=== PATIENT | male | born 1930 | race Caucasian/White ===

== ENCOUNTER → 2016-06-24 | Day surgery (SDC) | payer MEDICARE, BC ==
[~2016-06-24] MED LIST: ALEN70TA3 PO; ASPI-482 PO; CETI10TA22 PO; CHOL500015 PO; CRESTOR5 MG PO; ERGO500012 PO; FOLI1TAB16 PO; HYDR-971 PO; HYDR500C3 PO; IV RINGERS,LACTATED 1000ML 1,000 ML IV SCH; LIDOCAINE 2% PF Vial for OR 5 ML VIAL. ONE; METR60GE TP; MULT-658 PO; OMEP20CA5 PO; OXYC-323 PO; POTA10TA4 PO; PROPOFOL 40 ML IV ONE; TAMS0.4C2 PO; WHEA1POW8 PO; [UNRECOGNIZED DRUG - CODE] MC; [UNRECOGNIZED DRUG - OTHER]; [UNRECOGNIZED DRUG - OTHER]; juice plus
[2016-06-24 10:40] VITALS: BP 134/69
--- NOTE | 2016-06-24 11:23 | PREOP HP ---
DATE OF SERVICE: 06/24/2016 DATE OF PROCEDURE: 06/24/2016 REQUESTING PHYSICIAN: Emeka Mendez DO PRIMARY CARE PHYSICIAN: Emeka Mendez DO REASON FOR PROCEDURE: History of polyps. HISTORY OF PRESENT ILLNESS: This is an 86-year-old gentleman with a past medical history of multiple polyps. He presents today for colonoscopy. He did undergo right hemicolectomy on 10/03/2013. He has had no current GI complaints. PAST MEDICAL HISTORY: 1. Multiple polyps. 2. Reflux. 3. Prostate cancer, status post radiation. 4. Arthritis. 5. Kidney stones. 6. Palpitation. FAMILY MEDICAL HISTORY: Significant for heart disease, stomach cancer and SC. SOCIAL HISTORY: He is a former smoker. He quit in 1963. He denies alcohol or IV drug abuse. PAST SURGICAL HISTORY: 1. Hiatal hernia surgery. 2. Back surgery. 3. Vasectomy. 4. Cardiac ablation. 5. Prostatectomy. 6. Hernia repair. MEDICATIONS: 1. Aspirin. 2. Vitamin D. 3. Hydroxyurea. 4. Omeprazole. 5. Potassium. 6. Crestor. 7. Tamsulosin. 8. Benefiber. ALLERGIES: No known drug allergies. REVIEW OF SYSTEMS: A 13-point review of systems was done. It is positive as per HPI and otherwise negative. PHYSICAL EXAMINATION: GENERAL: He is a well-developed, well-nourished male in no apparent distress. HEENT: His oropharynx is clear. CARDIOVASCULAR: S1 and S2. LUNGS: Clear. ABDOMEN: Soft, nontender, and nondistended. ASSESSMENT AND PLAN: History of colon polyps. The risks and benefits of the procedure including bleeding, perforation and underlying were explained and he has agreed to proceed. Thank you for allowing me to participate in the care of this patient. SABI MILLER MD DR: TEE/jamil JOB#: [id number] / [id number]
--- NOTE | 2016-06-25 13:46 | PATHOLOGY ---
PATHOLOGY REPORT * * * * * * * * FINAL DIAGNOSIS: A. Colon biopsy, sigmoid polyp: - Tubular adenoma. B. Colon biopsy, transverse colon polyp: - Consistent with prominent fold. C. Colon biopsies, anastomosis polyp: - Consistent with prominent fold. D. Colon biopsy, sigmoid colon polyps; - Hyperplastic polyps. COMMENT: There is no high grade dysplasia or evidence of malignancy. (JPM:all; d/t: 06/25/2016) REPORT ELECTRONICALLY SIGNED BY: Raulito Lugo M.D. DATE/TIME: 06/25/2016 13:45 * * * * * * * * GROSS PATHOLOGY: A. Received in formalin labeled "Darien Jonesard and sigmoid polyp bx," is a segment of conley soft tissue measuring 0.3 cm in maximum dimension. The specimen is submitted entirely in cassette A1. B. Received in formalin labeled "Darien Jonesard and transverse colon polyp bx," is a segment of conley soft tissue measuring 0.3 cm in maximum dimension. The specimen is submitted entirely in cassette B1. C. Received in formalin labeled "Robert Karen and bx polyp anastomosis," are 3 segments of conley soft tissue measuring 1.2 x 0.3 x 0.2 cm in aggregate dimensions and ranging from 0.2 to 0.7 cm in maximum dimension. The specimen is submitted entirely in cassette C1. D. Received in formalin labeled "Karen Jones and bx polyps (2) sigmoid," are 3 segments of conley soft tissue measuring 0.9 x 0.2 x 0.2 cm in aggregate dimensions and ranging from 0.2 to 0.4 cm in maximum dimension. The specimen is submitted entirely in cassette D1. (TTL; 06/24/2016) INITIAL CPT CODE(S): A; 00024 B; 65157 C; 46970 D; 03618 Professional services performed by [facility] at [address] [address] Technical services performed by [facility] at [address] [place] [address], [address], [place] [address]. SPECIMEN(S) RECEIVED: A.Sigmoid polyp biopsy B.Transverse colon polyp biopsy C.Biopsy polyp anastomosis D.Biopsy polyps (2) sigmoid CLINICAL HISTORY: History of colon polyps PATIENT: DARIEN JONESPOPEYE Sherman /AGE: 1205/15/1930 (Age: 86) PATIENT #: [id number] ALT CASE #: SPECIMEN COLLECTION DATE: 06/24/2016 SPECIMEN RECEIVED DATE: 06/24/2016 [facility] - [address] [place] [address] - PHONE: [phone] * * * END OF REPORT * * *
== END | disposition home or self-care (01) ==
LOC: ENDOS 08:23
PROVIDERS: ATTEND Internal Medicine Gastroenterology
DX: Z12.11 Encounter for screening for malignant neoplasm of colon (principal); D12.5 Benign neoplasm of sigmoid colon; K63.5 Polyp of colon; K64.0 First degree hemorrhoids; Z98.0 Intestinal bypass and anastomosis status; I72.9 Aneurysm of unspecified site; I48.91 Unspecified atrial fibrillation; K21.9 Gastro-esophageal reflux disease without esophagitis; Z98.52 Vasectomy status; N30.90 Cystitis, unspecified without hematuria; M19.90 Unspecified osteoarthritis, unspecified site; Z87.891 Personal history of nicotine dependence; D64.9 Anemia, unspecified; Z51.0 Encounter for antineoplastic radiation therapy
CPT/HCPCS: 45380; J2704; 88305

== ENCOUNTER 2016-07-06 08:53 | Observation (INO) | payer MEDICARE ==
[~2016-07-06] VITALS: Ht 165.1 cm; Wt 108.4 kg
[2016-07-06] VITALS (9 sets, daily range): BP systolic 128–146; BP diastolic 64–73
[~2016-07-06 08:53] MED LIST changes: +FENTANYL PF 100 MCG/2 ML VIAL. IV PRN; +HYDROMORPHONE 2 MG/ML VIAL. IV PRN; +LIDOCAINE 1% 1 ML SYRINGE. ID PRN; -LIDOCAINE 2% PF Vial for OR 5 ML VIAL. ONE; +MORPHINE SULFATE 2 MG/ML DISP.SYRIN. IV PRN; +ONDANSETRON PF 4 MG/2 ML VIAL. IV PRN; +PROCHLORPERAZINE 10 MG/2 ML VIAL. IV PRN; -PROPOFOL 40 ML IV ONE
[2016-07-06] MEDS ORDERED: CEFTRIAXONE 1GM IVPB FOR OMNI 50 ML IV ONE (09:26)
[2016-07-06 09:37] LABS: BILIRUBIN,URINE LARGE (NEG); GLUCOSE,URINE 100 mg/dL (NEG); NITRITE,URINE POSITIVE (NEG); PROTEIN,URINE >=300 mg/dL (NEG-TRACE)
[2016-07-06] MEDS ORDERED: FENTANYL PF 100 MCG/2 ML VIAL. ONE (09:43)
[2016-07-06 09:47] LABS: RBC,URINE TNTC /HPF (0-2)
[2016-07-06 09:48] LABS: BACTERIA,URINE 0 /HPF (0-FEW)
[2016-07-06] MEDS ORDERED: LIDOCAINE 2% 100 MG/5 ML DISP.SYRIN. ONE (09:53)
[2016-07-06] MEDS ORDERED: PROPOFOL 20 ML IV ONE (09:53)
[2016-07-06] MEDS ORDERED: SEVOFLURANE 31 TO 60 MINUTES. IH ONE (09:53)
[2016-07-06] MEDS ORDERED: ONDANSETRON PF 4 MG/2 ML VIAL. ONE (09:53)
[2016-07-06] MEDS ORDERED: DEXAMETHASONE SOD PHOS 20 MG/5 ML VIAL. ONE (09:53)
[2016-07-06] MEDS ORDERED: SEVOFLURANE 61 TO 120 MINUTES. IH ONE (10:42)
[2016-07-06] MEDS ORDERED: ACETAMINOPHEN 325 MG TABLET. PO PRN (11:00)
[2016-07-06] MEDS ORDERED: 0.9 % SODIUM CHLORIDE 10 ML DISP.SYRIN. IV PRN (11:00)
[2016-07-06] MEDS ORDERED: MAGNESIUM HYDROXIDE 2,400 MG/30 ML ORAL.SUSP. PO PRN (11:00)
[2016-07-06] MEDS ORDERED: DIPHENHYDRAMINE HCL 25 MG CAPSULE PO PRN (11:00)
[2016-07-06] MEDS ORDERED: MAG HYDROX/AL HYDROX/SIMETH 30 ML ORAL.SUSP PO PRN (11:00)
[2016-07-06] MEDS ORDERED: NALOXONE 0.4 MG/ML VIAL. IV PRN ×2 (11:00)
[2016-07-06] MEDS ORDERED: MORPHINE SULFATE 2 MG/ML DISP.SYRIN. IV PRN (11:00)
[2016-07-06] MEDS ORDERED: ONDANSETRON PF 4 MG/2 ML VIAL. IV PRN (11:00)
[2016-07-06] MEDS: FENTANYL PF 100 MCG/2 ML VIAL. IV PRN ×2 (11:14→11:32)
[2016-07-06] MEDS ORDERED: CALCIUM POLYCARBOPHIL 625 MG TABLET PO PRN (11:16)
[2016-07-06] MEDS: HYDROCODONE/APAP 5/325MG TABLET. PO PRN ×2 (12:13→23:37)
[2016-07-06] MEDS: POTASSIUM CL 20MEQ-0.45% NACL 1,000 ML IV SCH (13:43)
--- NOTE | 2016-07-06 14:23 | OP ---
DATE OF SURGERY: 07/06/2016 PREOPERATIVE DIAGNOSES: Gross hematuria, urinary clots, radiation cystitis. POSTOPERATIVE DIAGNOSES: Gross hematuria, urinary clots, radiation cystitis. PROCEDURE: Cystoscopy, evacuation of bladder clots, fulguration of bladder mucosa, fulguration of prostate fossa. SURGEON: Trina Herrera DO ANESTHESIA: General. DRAINS: 22-Polish 3-way Bautista catheter to continuous bladder irrigation. 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 He was treated for prostate cancer years ago with radiation. He has had intermittent problems with radiation cystitis and gross hematuria. He completed hyperbaric oxygen therapy approximately a month ago and had a pretty good result, but during the last week, he has had gross hematuria, clots and difficulty voiding. It was felt that he should be brought to the hospital to undergo cystoscopy, evacuation of clots, fulguration of bleeding sites. This was explained to the patient. He appeared to understand and was agreeable. DESCRIPTION OF PROCEDURE: The patient was preloaded with a gram of Rocephin. He was taken to the operating room and placed on the operating room table, given a general anesthetic and then placed in a dorsolithotomy position using Tyshawn stirrups since we do not have a cystoscopy table. Rigid cystoscopy was performed. The patient was found to have a deep bulb urethral stricture and therefore, I had to remove the scope and dilate this stricture. Following that, rigid cystoscopy was performed. The prostate area was visualized. The sphincter appeared to be intact. He had some hemorrhagic changes at the bladder neck. Scope was advanced into the bladder. There were some clots in the bladder. These had to be evacuated with Ellik evacuator. I then began to carefully inspect the bladder mucosa with the 30 and 70-degree lens. He appeared to have some bleeding sites on the right lateral bladder wall. I was able to advance a 24-Polish resectoscope sheath with a [employer] obturator into the bladder and then used the [employer] resectoscope fitted with a rollerball electrode. I was able to reach some of these bleeding sites, but the patient's bladder neck is fixed and I could not get an angle to where I could get to all of the bleeding sites with the resectoscope. Therefore, the scope was removed. I then inserted a 21-Polish rigid cystoscope into the bladder and used a Bugbee electrode and once again the limiting factor was the patient's frozen bladder neck, it was hard to get the scope at an angle to cauterize all bleeding vessels on the right lateral wall. I cauterized as much as I could. Following that, I retracted the scope into the bladder neck and there was some tissue there that was hemorrhagic and bleeding in nature and this was cauterized as well. Inspection of the bladder revealed that I had cauterized all that I could reach and there was minimal bleeding left. Therefore, the instruments were removed. A well-lubricated 22-Polish 3-way Bautista catheter was inserted into the urethra and into the bladder and the balloon was filled with 15 mL of fluid and connected to continuous bladder irrigation. The patient tolerated the procedure well and was sent to recovery room in satisfactory condition. Plans will be to place the patient in observation bed with his 3-way Bautista catheter to continuous bladder irrigation. We will see how his hematuria does overnight. TRINA HERRERA DO DR: CLARA/jamil JOB#: [id number] / [id number]
[2016-07-06] MEDS ORDERED: HYDROXYUREA 500 MG CAPSULE PO SCH (18:00)
[2016-07-06] MEDS ORDERED: ATORVASTATIN CALCIUM 20 MG TABLET PO SCH (21:00)
[2016-07-06] MEDS ORDERED: TAMSULOSIN 0.4 MG CAP.ER.24H. PO SCH (21:00)
[2016-07-06] MEDS: DOCUSATE SODIUM 100 MG CAPSULE PO SCH (21:21)
[2016-07-07] MEDS: POTASSIUM CL 20MEQ-0.45% NACL 1,000 ML IV SCH ×2 (02:10→11:52)
[2016-07-07 03:00] VITALS: BP 120/60
[2016-07-07] MEDS ORDERED: LEVOFLOXACIN 500 MG TABLET PO SCH (06:00)
[2016-07-07 07:00] VITALS: BP 122/52
[2016-07-07] MEDS ORDERED: PANTOPRAZOLE 40 MG TABLET. PO SCH (07:30)
[2016-07-07] MEDS: DOCUSATE SODIUM 100 MG CAPSULE PO SCH (08:59)
[2016-07-07] MEDS ORDERED: POTASSIUM CITRATE 10 MEQ TABLET.ER PO SCH (09:00)
[2016-07-07 11:00] VITALS: BP 127/57
--- NOTE | 2016-07-07 13:05 | DISCH ---
DISCHARGE INSTRUCTIONS Condition on Discharge Condition on Discharge: Stable Activity After Discharge Activity Instructions for Disc: Avoid exertion Lifting Instructions after Dis: No heavy lifting Diet after Discharge Diet after Discharge: Regular Contacting the DRLars after DC Call your doctor for: Concerns you may have Follow-Up Follow up with: Dr Herrera in 4 weeks TRINA HERRERA DO Jul 07, 2016 13:05
--- NOTE | 2016-07-07 13:07 | PDOC ---
Provider Note Provider Note Urology: Urine color improved schwartz catheter removed Plan: Home Rx TRINA Alonso DO Jul 07, 2016 13:07
--- NOTE | 2016-07-07 20:09 | DS ---
DATE OF DISCHARGE: 07/07/2016 FINAL DIAGNOSES: Hematuria, radiation cystitis. OPERATIONS AND PROCEDURES: Cystoscopy, evacuation of bladder clots, fulguration of bladder. This is a summary of the patient's hospital course. A well-documented history and physical can be found within the body of the chart. Briefly, this is an 86-year-old male with a history of radiation cystitis. Recently, he developed gross hematuria and was passing clots. He is experiencing difficulty voiding. Therefore, it is felt that he should be brought to the hospital and undergo cystoscopy and extraction of blood clots from the bladder and ____ bleeding vessels. The patient was brought to the hospital on 07/06/2016. He was taken to surgery and under general anesthesia, cystoscopy is performed. The clots were evacuated from the bladder. Then, the bleeding vessels on the bladder mucosa were cauterized. I had difficulty reaching some of the bleeding areas on the right lateral wall due to the fixated bladder neck which would not allow me to get the scope over to these areas. However, most of the bleeding was stopped and well controlled at the conclusion of the procedure. Therefore, a 22-Greek 3-way Bautista catheter was inserted into the urethra and into the bladder. A 15 mL balloon was filled and he was placed on continuous bladder irrigation. During the night his urine color improved. Following next day there was only a tinge of blood in the urine. Therefore, his Bautista catheter was removed. He was discharged on 07/07/2016, is given discharge instructions. I sent him home on a prescription of Cipro antibiotics for 5 days. He is going to keep in contact with my office and let me know if the bleeding resumes. Interestingly, he completed hyperbaric oxygen therapy about 4-6 weeks ago and had good result, however, now once again he started bleeding from his radiation cystitis. CONDITION ON DISCHARGE: Improved. He was given discharge instructions. TRINA HERRERA DO DR: CLARA/jamil JOB#: [id number] / [id number]
== END 2016-07-07 14:00 | disposition home or self-care (01) ==
LOC: SURG 08:53 → 4 NORTH 11:07
PROVIDERS: ADMIT Urology; ATTEND Urology
DX: N30.41 Irradiation cystitis with hematuria (principal); N32.89 Other specified disorders of bladder; N35.9 Urethral stricture, unspecified; Y84.2 Radiological procedure and radiotherapy as the cause of abnormal reaction of the patient, or of later complication, without mention of misadventure at the time of the procedure
CPT/HCPCS: 52001; 52214; 81001; 87086; G0378; G0379; J0690; J1100; J2704; J3010; J2405

== ENCOUNTER → 2016-08-19 | Outpatient (CLI) | payer MEDICARE ==
[~2016-08-19] MED LIST changes: -FENTANYL PF 100 MCG/2 ML VIAL. IV PRN; -HYDROMORPHONE 2 MG/ML VIAL. IV PRN; -IV RINGERS,LACTATED 1000ML 1,000 ML IV SCH; -LIDOCAINE 1% 1 ML SYRINGE. ID PRN; -MORPHINE SULFATE 2 MG/ML DISP.SYRIN. IV PRN; -ONDANSETRON PF 4 MG/2 ML VIAL. IV PRN; -PROCHLORPERAZINE 10 MG/2 ML VIAL. IV PRN
--- NOTE | 2016-08-19 09:54 | RAD ---
PROCEDURE Lumbar spine MRI without contrast. HISTORY Lower back pain. TECHNIQUE Multiplanar and multi sequence magnetic resonance imaging of the lumbar spine was performed without contrast. COMPARISON None. FINDINGS There is S shaped lumbar scoliosis, with dextrocurvature centered at the upper lumbar levels and levo curvature centered at the lower lumbar levels. There is slight retrolisthesis of L1 on L2, L2 on L3 and L3 on L4. There is degenerative endplate remodeling with disc space narrowing and disc desiccation at all levels. There are Schmorl's nodes at all levels. There are few vertebral body hemangiomas. No suspicious osseous lesion is seen. There is no acute or subacute fracture. There is a small simple appearing right renal cyst. There is an abdominal aortic aneurysm measuring 3.6 cm in maximum caliber. The conus terminates at T12-L1. At L1-L2, there is a diffuse disc bulge and endplate osteophytosis. There is mild facet arthropathy. There is mild bilateral foraminal stenosis. At L2-L3, there is a diffuse disc bulge and endplate osteophytosis. There is mild facet arthropathy. There is mild to moderate right foraminal stenosis. At L3-L4, there is a broad-based left paracentral to extra foraminal disc protrusion superimposed on a diffuse disc bulge and endplate osteophytosis. There is mild facet arthropathy. There are right kaylyn laminectomy changes. There is hypertrophy of the left aspect of the ligamentum flavum. There is moderate right and mild left foraminal stenosis. At L4-L5, there are bilateral foraminal to extra foraminal disc protrusions with slight superior extrusions superior posed on a disc bulge and endplate osteophytosis. There is mild left greater than right facet arthropathy. There are right kaylyn laminectomy changes. There is [id number] right and moderate left foraminal stenosis. At L5-S1, there are bilateral foraminal to extra foraminal disc protrusions with slight superior extrusions superimposed on a disc bulge, endplate osteophytosis and posterior annular tear. There is mild facet arthropathy. There is moderate bilateral foraminal stenosis. IMPRESSION 1. Multilevel degenerative change within the lumbar spine, resulting in foraminal stenosis at the aforementioned levels. 2. Right kaylyn laminectomy changes at the lower lumbar levels. There is no significant central canal stenosis. 3. Lumbar scoliosis and mild multilevel listhesis. 4. Suspected 3.6 cm abdominal aortic aneurysm. Electronically signed by: Marie Anthony (Aug 19, 2016 09:53:02)
== END | disposition home or self-care (01) ==
LOC: MRI 11:30
DX: M54.9 Dorsalgia, unspecified (principal); M54.16 Radiculopathy, lumbar region
CPT/HCPCS: 72148

== ENCOUNTER 2016-11-11 12:03 | Day surgery (SDC) | payer MEDICARE ==
[~2016-11-11] VITALS: Ht 195.6 cm; Wt 106.6 kg
[~2016-11-11 12:03] MED LIST changes: +ASPI-630 PO; -CHOL500015 PO; +CHOL500045 PO; -ERGO500012 PO; +ERGO500027 PO; +HYDR500C16 PO; -HYDR500C3 PO; +HYDROmorphone 2 MG/ML VIAL IV PRN; +IV RINGERS,LACTATED 1000ML 1,000 ML IV SCH; +LIDOCAINE 1% 1 ML SYRINGE. ID PRN; +METROGEL TOP; +MORPHINE SULFATE 2 MG/ML DISP.SYRIN. IV PRN; +ONDANSETRON PF 4 MG/2 ML VIAL. IV PRN; +PROCHLORPERAZINE 10 MG/2 ML VIAL. IV PRN; +fentaNYL PF VIAL 100 MCG/2 ML VIAL IV PRN
[2016-11-11 12:37] LABS: BILIRUBIN,URINE NEGATIVE (NEG); GLUCOSE,URINE NEGATIVE (NEG); NITRITE,URINE NEGATIVE (NEG); PH,URINE 5.5; PROTEIN,URINE 30 mg/dL (NEG-TRACE); UROBILINOGEN,URINE 0.2 mg/dL (0.2 mg/dL)
[2016-11-11 12:44] LABS: BACTERIA,URINE FEW /HPF (0-FEW); RBC,URINE TNTC /HPF (0-2)
[2016-11-11 12:45] LABS: YEAST,URINE PRESENT /HPF
[2016-11-11 13:04] LABS: BASO % 0 % (0-3); EOS % 0 % (0-3); HEMATOCRIT 38.2 % (39.0-53.0); HEMOGLOBIN 12.7 g/dL (13.0-17.5); LYMPH # 1.7 x10^3/uL (1.0-4.8); LYMPH % 33 % (24-48); MEAN CORPUSCULAR HEMOGLOBIN 35 pg (25-35); MEAN CORPUSCULAR HGB CONC 33 g/dL (31-37); MEAN CORPUSCULAR VOLUME 106 fL (79-100); MONO % 11 % (0-9); NEUT % 56 % (31-73); PLATELET COUNT 326 x10^3/uL (140-400); RED CELL DISTRIBUTION WIDTH 14.4 % (11.5-14.5); WHITE BLOOD COUNT 5.3 x10^3/uL (4.0-11.0)
[2016-11-11 13:13] LABS: CALCIUM 9.2 mg/dL (8.5-10.1); CREATININE 1.1 mg/dL (0.7-1.3); GFR 63.5; POTASSIUM 4.5 mmol/L (3.5-5.1)
[2016-11-11 13:20] LABS: INR 1.1 (0.8-1.1); PROTHROMBIN TIME PATIENT 13.1 SEC (11.7-14.0)
[2016-11-11] MEDS ORDERED: IOHEXOL 300 MG/ML 50 ML VIAL. ONE (13:35)
[2016-11-11] MEDS ORDERED: LIDOCAINE 2% PF Vial for OR 5 ML VIAL. ONE (14:46)
[2016-11-11] MEDS ORDERED: PROPOFOL 20 ML IV ONE (14:46)
[2016-11-11] MEDS ORDERED: ONDANSETRON PF 4 MG/2 ML VIAL. ONE (14:46)
[2016-11-11] MEDS ORDERED: fentaNYL PF VIAL 100 MCG/2 ML VIAL ONE (14:46)
[2016-11-11] MEDS ORDERED: FAMOTIDINE 20 MG/2 ML VIAL ONE (14:46)
[2016-11-11] MEDS ORDERED: DEXAMETHASONE SOD PHOS 20 MG/5 ML VIAL. ONE (15:28)
[2016-11-11] MEDS ORDERED: DESFLURANE 31 TO 60 MINUTES IH ONE (15:51)
--- NOTE | 2016-11-11 16:44 | PDOC ---
BRIEF OPERATIVE NOTE Date: Nov 11, 2016 Pre-Op Diagnosis Difficulty voiding, Bladder stone Post-Op Diagnosis Same Procedure Performed Cystoscopy, laser litholapaxy bladder stone, urethral dilation Surgeon Finn Anesthesia Type: General Blood Loss 50cc Specimens Obtained stone debris sent for analysis Findings same Complications none Additional Remarks home with schwartz due to hematuria TRINA HERRERA DO Nov 11, 2016 16:44
[2016-11-11 16:45] VITALS: BP 141/84
--- NOTE | 2016-11-11 16:45 | DISCH ---
DISCHARGE INSTRUCTIONS Condition on Discharge Condition on Discharge: Stable Activity After Discharge Activity Instructions for Disc: Activity as tolerated Driving Instructions after Dis: Do not drive today Diet after Discharge Diet after Discharge: Regular Additional Diet Restrictions: increase oral fluids to flush out bladder Contacting the after DC Call your doctor for: Concerns you may have Follow-Up Follow up with: Dr Herrera will call in AM to check on urine color TRINA HERRERA DO Nov 11, 2016 16:45
[2016-11-11] MEDS ORDERED: CIPR500T94 PO (16:49)
--- NOTE | 2016-11-11 20:32 | OP ---
DATE OF SURGERY: 11/11/2016 PREOPERATIVE DIAGNOSES: Difficulty voiding, bladder stone, prostate cancer. POSTOPERATIVE DIAGNOSES: Difficulty voiding, bladder stone, prostate cancer, urethral stricture. PROCEDURE: Cystoscopy, laser litholapaxy of bladder stone, urethra dilation. SURGEON: Trina Herrera DO. ANESTHESIA: General. INDICATIONS AND JUDGMENT: This is an 86-year-old male with a history of prostate cancer. He had external beam radiation therapy years ago. He recently had developed a hemorrhagic cystitis due to his previous radiation. More recently, the patient had been experiencing difficulty voiding and strain to urinate. He underwent flexible cystoscopy in the office and he was found to have a bladder calculus which was adherent to the bladder neck at the 10 and 11 o'clock position. I was unable to free it up and remove it during flexible cystoscopy in the office. Therefore, it was felt that he should be brought to outpatient surgery with the benefit of anesthesia and undergo laser litholapaxy. The procedure was explained to the patient. He appeared to understand and was agreeable. DESCRIPTION OF PROCEDURE: The patient was preloaded with IV Levaquin, taken to the operating room and placed on the operating room table in a supine position, given a general anesthetic and then placed in a dorsolithotomy position using Tyshawn stirrups. Rigid cystoscopy was performed. The distal urethra was normal, but he had a deep bulbar urethral stricture, which was difficult to negotiate; therefore, I dilated him with ____ sounds to 24 Greek. He did experience some mild urethral bleeding following that dilation. Rigid cystoscopy was performed. I was now able to pass the scope into the prostate fossa. The prostate fossa is rather fixed due to his previous radiation. The bladder stone was identified adherent to the bladder neck at the 10 and 11 o'clock position. I advanced the holmium laser fiber through the working channel of the cystoscope and placed it on this stone, which was relatively soft. The stone was fragmented. Following that, the debris was removed from the bladder using an [employer] evacuator. This appeared to open the bladder neck satisfactorily. Therefore, after the bladder had been irrigated, the scope was removed. He did have some hematuria; therefore, it was felt that a Bautista catheter should be left in place. A well lubricated 20-Greek 2-way Bautista catheter was advanced into the urethra and into the bladder. 10 mL balloon was filled and this was irrigated with a Tomy syringe. Following that, the catheter was connected to a dependent drainage bag. The patient tolerated the procedure well and was sent to recovery room in satisfactory condition. Plans will be to discharge the patient home from the recovery room with his Bautista catheter to dependent drainage bag. He was given a prescription for Cipro 500 mg p.o. b.i.d. for 5 days. He will call me tomorrow, let me know if the urine is clear; if so, we will remove this catheter tomorrow. TRINA HERRERA DO DR: Madeline JOB#: [id number] / [id number]
[2016-11-17 09:23] LABS: CA OXALATE MONOHYDR 97 % (.); COLOR Tan (.)
== END 2016-11-11 17:26 | disposition home or self-care (01) ==
LOC: SURG 12:03
PROVIDERS: ATTEND Urology
DX: N21.0 Calculus in bladder (principal); N30.80 Other cystitis without hematuria; N35.8 Other urethral stricture; I48.91 Unspecified atrial fibrillation; K21.9 Gastro-esophageal reflux disease without esophagitis; E78.00 Pure hypercholesterolemia, unspecified; M19.90 Unspecified osteoarthritis, unspecified site; Z79.01 Long term (current) use of anticoagulants; Z85.46 Personal history of malignant neoplasm of prostate; Z98.41 Cataract extraction status, right eye; Z98.42 Cataract extraction status, left eye; Z86.69 Personal history of other diseases of the nervous system and sense organs; Z96.652 Presence of left artificial knee joint; Z88.0 Allergy status to penicillin
CPT/HCPCS: 36415; 52317; 80048; 81001; 82365; 85027; 85610; 85730; 87086; C1769; J1100; J1956; J2405; J2704; J3010; S0028; Q9967

== ENCOUNTER 2016-11-14 14:23 | Inpatient (IN) | payer MEDICARE ==
[~2016-11-14] VITALS: Ht 195.6 cm; Wt 108.9 kg
[~2016-11-14 14:23] MED LIST changes: -ASPI-630 PO; +ASPI81TA2 PO; +CHOL500015 PO; -CHOL500045 PO; +CIPR500T94 PO; +ERGO500012 PO; -ERGO500027 PO; -HYDROmorphone 2 MG/ML VIAL IV PRN; -IV RINGERS,LACTATED 1000ML 1,000 ML IV SCH; -LIDOCAINE 1% 1 ML SYRINGE. ID PRN; -MORPHINE SULFATE 2 MG/ML DISP.SYRIN. IV PRN; -ONDANSETRON PF 4 MG/2 ML VIAL. IV PRN; -PROCHLORPERAZINE 10 MG/2 ML VIAL. IV PRN; -fentaNYL PF VIAL 100 MCG/2 ML VIAL IV PRN
--- NOTE | 2016-11-14 15:05 | PHYS DOC ---
Past Medical History Past Medical History: High Cholesterol, Other Additional Past Medical Histor: HEMATURIA, THROMBOCYTOSIS, prostate ca Past Surgical History: Knee Replacement, Other Additional Past Surgical Histo: COLON RESECTION, ABLATION, Alcohol Use: None Drug Use: None Adult General Chief Complaint Chief Complaint: BLOOD IN URINE HPI HPI Patient is a 86 year old male who had a stone removed from his bladder on and has been having intermittent changes in his Bautista is at [facility]. Dr. Briseno once patient admitted and wants intermittent flushes to a 3-way Bautista catheter. Review of Systems Review of Systems Constitutional: Denies fever or chills [] Eyes: Denies change in visual acuity, redness, or eye pain [] HENT: Denies nasal congestion or sore throat [] Respiratory: Denies cough or shortness of breath [] Cardiovascular: No additional information not addressed in HPI [] GI: Denies abdominal pain, nausea, vomiting, bloody stools or diarrhea [] : + hematuria Musculoskeletal: Denies back pain or joint pain [] Integument: Denies rash or skin lesions [] Neurologic: Denies headache, focal weakness or sensory changes [] Allergies Allergies Allergies Coded Allergies Type Severity Reaction Last Updated Verified Penicillins Allergy Severe Anaphylaxis 11/11/16 Yes Physical Exam Physical Exam Constitutional: Well developed, well nourished, no acute distress, non-toxic appearance. [] HENT: Normocephalic, atraumatic, bilateral external ears normal, oropharynx moist, no oral exudates, nose normal. [] Eyes: PERRLA, EOMI, conjunctiva normal, no discharge. [] Neck: Normal range of motion, no tenderness, supple, no stridor. [] Cardiovascular:Heart rate regular rhythm, no murmur [] Lungs & Thorax: Bilateral breath sounds clear to auscultation [] Abdomen: Bowel sounds normal, soft, no tenderness, no masses, no pulsatile masses. [] Skin: Warm, dry, no erythema, no rash. [] Back: No tenderness, no CVA tenderness. [] Extremities: No tenderness, no cyanosis, no clubbing, ROM intact, no edema. [] Neurologic: Alert and oriented X 3, normal motor function, normal sensory function, no focal deficits noted. [] Psychologic: Affect normal, judgement normal, mood normal. [] Current Patient Data Vital Signs Vital Signs Date Time Temp Pulse Resp B/P (MAP) Pulse Ox O2 Delivery O2 Flow Rate FiO2 11/14/16 14:38 97.9 60 18 166/79 (108) 98 Room Air 97.9 EKG EKG [] Radiology/Procedures Radiology/Procedures [] Course & Med Decision Making Course & Med Decision Making Patient admitted to hospitalist Dr. Saab. Dragon Disclaimer Dragon Disclaimer This electronic medical record was generated, in whole or in part, using a voice recognition dictation system. Departure Departure Impression: Primary Impression: IRRADIATION CYSTITIS WITH HEMATURIA Disposition: ADMITTED INPATIENT Admitting Physician: Kristi Gauthier Condition: STABLE Referrals: ZINA EDOUARD (PCP) CHAYA SANDOVAL DO Nov 14, 2016 15:05
[2016-11-14] MEDS ORDERED: ONDANSETRON PF 4 MG/2 ML VIAL. IV PRN ×2 (15:15→16:17)
--- NOTE | 2016-11-14 16:25 | PDOC1 ---
History and Physical Date of Admission Date of Admission DATE: 11/14/16 TIME: 16:19 Identification/Chief Complaint Chief Complaint blood clots in urine Problems: Source Source: Caregiver, Chart review, Patient History of Present Illness History of Present Illness Very pleasant 86 y.o male very good IADLs and ADLS, accompanied by today, seen at ER, admitted bec of hematuria with blood clots per penis. HAd bladder stone not too long ago, cystoscopy done, Sent home doing well until having gross hematuria yesterday, went to [facility], sent home but clots persisted this time to the point of having difficulty voiding bec of the clots. Needed schwartz at ER. Admitted for continuous bladder irrigation, HGb 11/11 was 12, feels significantly better that schwartz is in,Urine is actually clearing up, HAs had multiple kidney stones in past, Only takes 2 meds now, CIPRO and hydroxurea for essential thrombocytosis Past Medical History Cardiovascular: HTN, Other Pulmonary: No pertinent hx GI: Other Heme/Onc: No pertinent hx, Other (essnetial thmrobocytosis) Hepatobiliary: No pertinent hx Renal/: Prostate Ca., Other Past Surgical History Past Surgical History: Hernia Repair, Other (multiple urologic proc for stones , recent cysto) Family History Family History: No Significant, Cancer, Diabetes Social History Smoke: No ALCOHOL: none Drugs: None Current Medications Current Medications Current Medications Ondansetron HCl (Zofran) 4 mg PRN Q8HRS PRN IV NAUSEA/VOMITING; Start 11/14/16 at 15:15; Stop 11/15/16 at 15:14 Fentanyl Citrate (Fentanyl 2ml Vial) 50 mcg PRN Q1HR PRN IV PAIN; Start at 15:15; Stop 11/15/16 at 15:14 Active Scripts Active Reported Cipro (Ciprofloxacin Hcl) 500 Mg Tablet 1 Tab PO BID [Metrogel Topical] 1 Applic TOP PRN PRN [Juice Festiv Veggie] BID [Juice Festiv Fruit] BID Urocit-K (Potassium Citrate) 10 Meq Tablet.er 1 Tab PO DAILY Tamsulosin Hcl 0.4 Mg Cap.er.24h 1 Cap PO HS Hydroxyurea 500 Mg Capsule 1,000 Mg PO QEVNG Vitamin D2 (Ergocalciferol (Vitamin D2)) 50,000 Unit Capsule 5,000 Unit PO DAILY Crestor (Rosuvastatin Calcium) 5 Mg Tablet 5 Mg PO 4 TIMES A WEEK Prilosec (Omeprazole) 20 Mg Capsule.dr 20 Mg PO 4 TIMES A WEEK Allergies Allergies: Coded Allergies: Penicillins (Verified Allergy, Severe, Anaphylaxis, 11/11/16) ROS General: No: Chills, Night Sweats, Fatigue, Malaise, Appetite, Other PSYCHOLOGICAL ROS: No: Anxiety, Behavioral Disorder, Concentration difficultie , Decreased libido, Depression, Disorientation, Hallucinations, Hostility, Irritablity, Memory difficulties, Mood Swings, Obsessive thoughts, Physical abuse, Sexual abuse, Sleep disturbances, Suicidal ideation, Other Eyes: No Blurry vision, No Decreased vision, No Double vision, No Dry eyes, No Excessive tearing, No Eye Pain, No Itchy Eyes, No Loss of vision, No Photophobia , No Scotomata, No Uses contacts, No Uses glasses, No Other HEENT: No: Heacaches, Visual Changes, Hearing change, Nasal congestion, Nasal discharge, Oral lesions, Sinus pain, Sore Throat, Epistaxis, Sneezing, Snoring, Tinnitus, Vertigo, Vocal changes, Other ALLERGY AND IMMUNOLOGY: No: Hives, Insect Bite Sensitivity, Itchy/Watery Eyes, Nasal Congestion, Post Nasal Drip, Seasonal Allergies, Other Hematological and Lymphatic: No: Bleeding Problems, Blood Clots, Blood Transfusions, Brusing, Night Sweats, Pallor, Swollen Lymph Nodes, Other ENDOCRINE: No: Breast Changes, Galactorrhea, Hair Pattern Changes, Hot Flashes , Malaise/lethargy, Mood Swings, Palpitations, Polydipsia/polyuria, Skin Changes , Temperature Intolerance, Unexpected Weight Changes, Other Breast: No New/Changing Breast Lumps, No Nipple changes, No Nipple discharge, No Other Respiratory: No: Cough, Hemoptysis, Orthopnea, Pleuritic Pain, Shortness of breath, SOB with excertion, Sputum Changes, Stridor, Tachypnea, Wheezing, Other Cardiovascular: No Chest Pain, No Palpitations, No Orthopnea, No Paroxysmal Noc. Dyspnea, No Edema, No Lt Headedness, No Other Genitourinary: YES Hematuria, YES Retention Musculoskeletal: No Gait Disturbance, No Joint Pain, No Joint Stiffness, No Joint Swelling, No Muscle Pain, No Muscular Weakness, No Pain In:, No Swelling In:, No Other Neurological: No Behavorial Changes, No Bowel/Bladder ControlChng, No Confusion , No Dizziness, No Gait Disturbance, No Headaches, No Impaired Coord/balance, No Memory Loss, No Numbness/Tingling, No Seizures, No Speech Problems, No Tremors, No Visual Changes, No Weakness, No Other Skin: No Dry Skin, No Eczema, No Hair Changes, No Lumps, No Mole Changes, No Mottling, No Nail Changes, No Pruritus, No Rash, No Skin Lesion Changes, No Other, No Acne Physical Exam General: Alert, Oriented X3, Cooperative, No acute distress HEENT: Atraumatic, PERRLA Lungs: Clear to auscultation, Normal air movement Heart: S1S2, RRR, no thrills, no rubs, no gallops, no murmurs Cardiovascular: S1, S2 Abdomen: Normal bowel sounds, Soft, No tenderness, No hepatosplenomegaly, No masses Male Genitals Exam: normal genitalia, normal prostate, other (schwartz in, good uO , clearing up urine (pinkish)) Extremities: No clubbing, No cyanosis, No edema, Normal pulses, No tenderness/ swelling Skin: No rashes, No breakdown, No significant lesion Neuro: Normal gait, Normal speech, Strength at 5/5 X4 ext, Normal tone, Sensation intact, Cranial nerves 3-12 NL, Reflexes 2+ Psych/Mental Status: Mental status NL, Mood NL Vitals Vitals Vital Signs Date Time Temp Pulse Resp B/P (MAP) Pulse Ox O2 Delivery O2 Flow Rate FiO2 11/14/16 14:38 97.9 60 18 166/79 (108) 98 Room Air 97.9 VTE Prophylaxis Ordered VTE Prophylaxis Devices: Contraindicated VTE Pharmacological Prophylaxi: Contraindicated Assessment/Plan Assessment/Plan 1. Gross hematuria with clots 2. Bladder stone, recent cysto 3. ESSENTIAL thrombpcytosis on hydroxyurea - likely causing clots too in his bladder 4. Overweight PLAN: Admit OBS Bladder irrigation Urology consult COnt hydroxyurea PO qD COnt cipro and flomax Seen at ER Chirag king and ER and pt SUSANNA JACKSON MD Nov 14, 2016 16:25
[2016-11-14] MEDS ORDERED: ACETAMINOPHEN 500 MG TABLET PO PRN (16:30)
[2016-11-14 16:50] LABS: BASO % 1 % (0-3); EOS % 0 % (0-3); HEMATOCRIT 35.7 % (39.0-53.0); LYMPH # 1.3 x10^3/uL (1.0-4.8); LYMPH % 19 % (24-48); MEAN CORPUSCULAR HEMOGLOBIN 36 pg (25-35); MEAN CORPUSCULAR HGB CONC 34 g/dL (31-37); MEAN CORPUSCULAR VOLUME 106 fL (79-100); MONO % 15 % (0-9); NEUT % 66 % (31-73); PLATELET COUNT 310 x10^3/uL (140-400); RED BLOOD COUNT 3.37 x10^6/uL (4.30-5.70); WHITE BLOOD COUNT 6.8 x10^3/uL (4.0-11.0)
[2016-11-14 17:01] LABS: CALCIUM 9.3 mg/dL (8.5-10.1); CREATININE 1.1 mg/dL (0.7-1.3); GFR 63.5; INR 1.1 (0.8-1.1); PROTHROMBIN TIME PATIENT 13.8 SEC (11.7-14.0)
[2016-11-14 17:05] LABS: ALBUMIN 3.9 g/dL (3.4-5.0); ALBUMIN/GLOBULIN RATIO 1.2 (1.0-1.7); TOTAL BILIRUBIN 1.1 mg/dL (0.2-1.0); TOTAL PROTEIN 7.1 g/dL (6.4-8.2)
[2016-11-14] MEDS: HYDROXYUREA 500 MG CAPSULE PO SCH (17:33)
[2016-11-14 18:00] VITALS: BP 131/68
[2016-11-14] MEDS: CIPROFLOXACIN HCL 250 MG TABLET. PO SCH (21:56)
[2016-11-14] MEDS: TAMSULOSIN 0.4 MG CAP.ER.24H. PO SCH (21:56)
[2016-11-14 22:03] VITALS: BP 137/74
[2016-11-14] MEDS: fentaNYL PF VIAL 100 MCG/2 ML VIAL IV PRN (22:18)
[2016-11-15 03:04] VITALS: BP 142/76
[2016-11-15] MEDS: fentaNYL PF VIAL 100 MCG/2 ML VIAL IV PRN ×2 (03:06→05:07)
[2016-11-15 04:57] LABS: HEMATOCRIT 35.6 % (39.0-53.0); HEMOGLOBIN 12.2 g/dL (13.0-17.5)
[2016-11-15 07:00] VITALS: BP 141/72
[2016-11-15] MEDS: PANTOPRAZOLE 40 MG TABLET.DR. PO SCH (09:12)
[2016-11-15] MEDS: CIPROFLOXACIN HCL 250 MG TABLET. PO SCH ×2 (09:14→22:07)
--- NOTE | 2016-11-15 10:15 | PDOC ---
PROGRESS NOTES Chief Complaint Chief Complaint Gross hematuria ASSESSMENT AND PLAN: 1. 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 also recent blader stone, hx cysto. cont bladder irrigation, cipro. awaiting Dr Briseno's input 2. ET: well controlled. cont hydrea History of Present Illness History of Present Illness hematuria persisting, painless. Vitals Vitals Vital Signs Date Time Temp Pulse Resp B/P (MAP) Pulse Ox O2 Delivery O2 Flow Rate FiO2 11/15/16 08:00 Room Air 11/15/16 07:00 98.1 55 16 141/72 (95) 98 98.1 Physical Exam General: Alert, Oriented X3, Cooperative, No acute distress Heart: Regular rate Lungs: Clear Abdomen: Normal bowel sounds, Soft, No tenderness Extremities: No clubbing, No edema Skin: No rashes Labs LABS Laboratory Tests Test 11/14/16 16:40 11/15/16 04:10 White Blood Count 6.8 x10^3/uL (4.0-11.0) Red Blood Count 3.37 x10^6/uL (4.30-5.70) Hemoglobin 12.0 g/dL (13.0-17.5) 12.2 g/dL (13.0-17.5) Hematocrit 35.7 % (39.0-53.0) 35.6 % (39.0-53.0) Mean Corpuscular Volume 106 fL (79-100) Mean Corpuscular Hemoglobin 36 pg (25-35) Mean Corpuscular Hemoglobin Concent 34 g/dL (31-37) 34 g/dL (31-37) Red Cell Distribution Width 14.0 % (11.5-14.5) Platelet Count 310 x10^3/uL (140-400) Neutrophils (%) (Auto) 66 % (31-73) Lymphocytes (%) (Auto) 19 % (24-48) Monocytes (%) (Auto) 15 % (0-9) Eosinophils (%) (Auto) 0 % (0-3) Basophils (%) (Auto) 1 % (0-3) Neutrophils # (Auto) 4.5 x10^3uL (1.8-7.7) Lymphocytes # (Auto) 1.3 x10^3/uL (1.0-4.8) Monocytes # (Auto) 1.0 x10^3/uL (0.0-1.1) Eosinophils # (Auto) 0.0 x10^3/uL (0.0-0.7) Basophils # (Auto) 0.0 x10^3/uL (0.0-0.2) Prothrombin Time 13.8 SEC (11.7-14.0) Prothromb Time International Ratio 1.1 (0.8-1.1) Activated Partial Thromboplast Time 30 SEC (24-38) Sodium Level 143 mmol/L (136-145) Potassium Level 4.0 mmol/L (3.5-5.1) Chloride Level 105 mmol/L (98-107) Carbon Dioxide Level 29 mmol/L (21-32) Anion Gap 9 (6-14) Blood Urea Nitrogen 14 mg/dL (8-26) Creatinine 1.1 mg/dL (0.7-1.3) Estimated GFR (Cockcroft-Gault) 63.5 BUN/Creatinine Ratio 13 (6-20) Glucose Level 100 mg/dL (70-99) Calcium Level 9.3 mg/dL (8.5-10.1) Total Bilirubin 1.1 mg/dL (0.2-1.0) Aspartate Amino Transf (AST/SGOT) 24 U/L (15-37) Alanine Aminotransferase (ALT/SGPT) 36 U/L (16-63) Alkaline Phosphatase 67 U/L (46-116) Total Protein 7.1 g/dL (6.4-8.2) Albumin 3.9 g/dL (3.4-5.0) Albumin/Globulin Ratio 1.2 (1.0-1.7) GUIDO SPEARS MD Nov 15, 2016 10:15
[2016-11-15 11:00] VITALS: BP 131/69
[2016-11-15 15:00] VITALS: BP 123/76
[2016-11-15] MEDS: HYDROXYUREA 500 MG CAPSULE PO SCH (17:30)
[2016-11-15 19:00] VITALS: BP 128/65
[2016-11-15] MEDS ORDERED: LOPERAMIDE 2 MG CAPSULE PO PRN (21:00)
[2016-11-15] MEDS: TAMSULOSIN 0.4 MG CAP.ER.24H. PO SCH (22:08)
[2016-11-15 23:00] VITALS: BP 131/71
[2016-11-16] VITALS (10 sets, daily range): BP systolic 110–141; BP diastolic 52–78
--- NOTE | 2016-11-16 04:51 | CONS ---
DATE OF CONSULTATION: 11/15/2016 CHIEF COMPLAINT: Gross hematuria, urinary clot retention. HISTORY OF PRESENT ILLNESS: This is an 86-year-old male with a history of radiation cystitis. Last week, the patient was experiencing difficulty voiding. He underwent a cystoscopy and was found to have a bladder stone adherent to the bladder mucosa at the bladder neck. He underwent laser litholapaxy. He had some gross hematuria following that procedure. Therefore, a Bautista catheter was left in place. I attempted to remove the catheter as an outpatient in the office a day or two later, but he still had some gross hematuria, so I had to replace it. Then, the following day, he developed gross hematuria and clot retention. He went to [facility], they removed the catheter and did not replace it. It did not take longer for him before he developed acute urinary retention secondary to blood clots. Therefore, he was told to come to [facility] yesterday and was admitted after they placed a 3-way Bautista catheter and connected him to continuous bladder irrigation. He had some problems with clots through the night, which had to be irrigated. Today, his urine looks very good on slow bladder irrigation. They have not had irrigate the catheter since early this morning. Currently, he feels pretty comfortable. PAST MEDICAL HISTORY: Significant for prostate cancer years ago that was treated with external beam radiation therapy. Within the last couple of years, he has developed radiation cystitis. The patient also has a history of thrombocytosis, he is followed by Hematology. He has been treated with hydroxyurea on a daily basis for his elevated platelet count. The patient also has a history of hypertension. PAST SURGICAL HISTORY: The patient has had a hernia repair. He has had multiple cystoscopy procedures for stones and for radiation cystitis. He was also treated with hyperbaric oxygen therapy for his radiation cystitis several months ago. SOCIAL HISTORY: The patient denies smoking or alcohol abuse. MEDICATIONS: Listed in the chart. PHYSICAL EXAMINATION: VITAL SIGNS: Stable. GENERAL DESCRIPTION: An 86-year-old male. He is resting comfortably today after a difficult night last night with clots and urinary clot retention. He is alert and oriented. He denies any pain at this time. ABDOMEN: Soft, nontender. Negative for flank pain bilaterally. No palpable abdominal masses. He denies suprapubic tenderness. GENITALIA: The patient has an indwelling 3-way Bautista catheter connected to continuous bladder irrigation. The color of the urine actually looks pretty good today. EXTREMITIES: Negative for cyanosis or edema. LABORATORY DATA: The patient's white blood cell count 6.8, hemoglobin stable at 12.2, hematocrit 35.6, platelet count is 310,000. Electrolytes are normal. His BUN 14, creatinine 1.1. Coag studies: The patient's PT is 13.8, which is within normal limits. His PTT is 30, which is within normal limits. His INR is 1.1. X-RAY STUDIES: No x-rays pertinent to system. IMPRESSION: 1. Gross hematuria. 2. Urinary clot retention. 3. Radiation cystitis. 4. Prostate cancer by history. PLAN: The patient will be taken to surgery tomorrow morning to undergo cystoscopy, evacuation of any remaining bladder clots and fulguration of any bleeding sites. He appears to understand and is agreeable. TRINA HERRERA DO DR: CLARA/jamil JOB#: [id number] / [id number]
[2016-11-16] MEDS ORDERED: PROPOFOL 20 ML IV ONE (06:59)
[2016-11-16] MEDS ORDERED: LIDOCAINE 2% PF Vial for OR 5 ML VIAL. ONE (06:59)
[2016-11-16] MEDS ORDERED: PROCHLORPERAZINE 10 MG/2 ML VIAL. IV PRN (07:00)
[2016-11-16] MEDS ORDERED: LIDOCAINE 1% 1 ML SYRINGE. ID PRN (07:00)
[2016-11-16] MEDS ORDERED: IV RINGERS,LACTATED 1000ML 1,000 ML IV SCH (07:00)
[2016-11-16] MEDS ORDERED: ONDANSETRON PF 4 MG/2 ML VIAL. IV PRN (07:00)
[2016-11-16] MEDS ORDERED: fentaNYL PF VIAL 100 MCG/2 ML VIAL IV PRN ×2 (07:00)
[2016-11-16] MEDS ORDERED: MORPHINE SULFATE 2 MG/ML DISP.SYRIN. IV PRN (07:00)
[2016-11-16] MEDS ORDERED: HYDROmorphone 2 MG/ML VIAL IV PRN (07:00)
[2016-11-16] MEDS ORDERED: CIPROFLOXACIN 400MG PREMIX 200 ML IV ONE (07:45)
[2016-11-16] MEDS ORDERED: DEXAMETHASONE SOD PHOS 20 MG/5 ML VIAL. ONE (07:56)
[2016-11-16] MEDS ORDERED: SEVOFLURANE 31 TO 60 MINUTES. IH ONE (07:56)
[2016-11-16] MEDS ORDERED: ONDANSETRON PF 4 MG/2 ML VIAL. ONE (08:12)
--- NOTE | 2016-11-16 08:34 | PDOC ---
BRIEF OPERATIVE NOTE Date: Nov 16, 2016 Pre-Op Diagnosis Gross hematuria, urinary clot retention Post-Op Diagnosis Same, hemorrhagic cystitis Procedure Performed Cystoscopy evacuation bladder clots fulguration of bladder mucosa Surgeon Finn Anesthesia Type: General Blood Loss minimal Specimens Obtained none Findings bladder clots hemorrhagic cystitis Complications None Additional Remarks tolerated well, 22Fr 3-way schwartz to CHARLENEI TRINA HERRERA DO Nov 16, 2016 08:34
[2016-11-16] MEDS: CIPROFLOXACIN HCL 250 MG TABLET. PO SCH ×2 (09:00→21:53)
--- NOTE | 2016-11-16 09:50 | OP ---
DATE OF SURGERY: 11/16/2016 PREOPERATIVE DIAGNOSES: Gross hematuria, urinary clot retention. POSTOPERATIVE DIAGNOSES: Gross hematuria, urinary clot retention, hemorrhagic cystitis. PROCEDURE: Cystoscopy, evacuation of bladder clots, fulguration of bladder. SURGEON: Trina Herrera DO. ANESTHESIA: General. INDICATIONS AND JUDGMENT: This is an 86-year-old male with a history of radiation cystitis. Last week, he underwent a cystoscopy and laser litholapaxy of a bladder stone. He went home, but developed hematuria and clot retention. This required Bautista catheterization irrigation. He had significant clots within the bladder. It was felt that he should be taken to surgery for cystoscopy, evacuation of bladder clots and fulguration of bleeding sites. That was explained to the patient. He appeared to understand and was agreeable. DESCRIPTION OF PROCEDURE: The patient was preloaded with IV Cipro antibiotics. He was taken to the operating room, given a general anesthetic and then placed in a dorsolithotomy position using Tyshawn stirrups since we do not have a cystoscopy table. Rigid cystoscopy was performed. The urethra was normal course and caliber. 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 The prostate was visualized. There was no active bleeding of the prostate fossa, which has been radiated in the past and there are radiation changes. The scope was advanced into the bladder. The bladder was examined. He had numerous clots from the floor of the bladder. I utilized the Aquapharm Biodiscovery evacuator and was able to remove all of the clots. Cystoscopy examination was repeated. He had ____ hemorrhagic blood vessels on the surface of the prostate consistent with radiation cystitis. These were fulgurated with a Bugbee electrode. Hemostasis was satisfactory and there was no bleeding at this time. Therefore, the instruments were removed. I placed a well-lubricated 22-Kittitian 3-way Bautista catheter into the urethra and into the bladder. The 20 mL balloon was filled. The return of urine was clear. There was no evidence of gross hematuria. This was connected to continuous bladder irrigation. He tolerated the procedure well and was sent to recovery room in satisfactory condition. We will monitor him today and if the urine stays clear, we will remove the Bautista catheter and hopefully discharge him soon. TRINA HERRERA DO DR: Madeline JOB#: [id number] / [id number]
[2016-11-16] MEDS: PANTOPRAZOLE 40 MG TABLET.DR. PO SCH (10:58)
[2016-11-16] MEDS ORDERED: HYDROcodone/APAP 5/325MG 1 TAB TABLET PO PRN (11:00)
--- NOTE | 2016-11-16 15:19 | PDOC ---
PROGRESS NOTES Chief Complaint Chief Complaint Gross hematuria ASSESSMENT AND PLAN: 1. 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 had cysto with fulguration of mucosa this AM with good results: no further hematuria 2. Pain control: norco PRN 3. ET: well controlled. cont hydrea 4. Dispo: anticipate D/C home after obs in AM History of Present Illness History of Present Illness mild post procedural pain, now resolved. feels drained Vitals Vitals Vital Signs Date Time Temp Pulse Resp B/P (MAP) Pulse Ox O2 Delivery O2 Flow Rate FiO2 11/16/16 14:00 49 18 124/55 (78) 98 Room Air 11/16/16 11:00 97.8 97.8 11/16/16 09:31 10 Physical Exam General: Alert, Oriented X3, Cooperative, No acute distress Heart: Regular rate Lungs: Clear Abdomen: Normal bowel sounds, Soft, No tenderness Extremities: No clubbing, No edema Skin: No rashes GUIDO SPEARS MD Nov 16, 2016 15:19
[2016-11-16] MEDS: HYDROXYUREA 500 MG CAPSULE PO SCH (18:20)
[2016-11-16] MEDS: TAMSULOSIN 0.4 MG CAP.ER.24H. PO SCH (21:53)
[2016-11-17 03:00] VITALS: BP 123/70
[2016-11-17 07:00] VITALS: BP 125/53
[2016-11-17] MEDS: PANTOPRAZOLE 40 MG TABLET.DR. PO SCH (07:38)
[2016-11-17] MEDS: CIPROFLOXACIN HCL 250 MG TABLET. PO SCH (07:38)
[2016-11-17 10:56] VITALS: BP 147/57
[2016-11-17 15:00] VITALS: BP 133/82
--- NOTE | 2016-11-17 17:16 | PDOC ---
Provider Note Provider Note Urology: Patient urine clear voiding satisfactorily Plan: Home Rx Cipro f/u bettinan TRINA HERRERA DO Nov 17, 2016 17:16
--- NOTE | 2016-11-18 01:01 | DS ---
DATE OF DISCHARGE: 11/17/2016 FINAL DIAGNOSES: 1. Gross hematuria. 2. Urinary clot retention. 3. Radiation cystitis. This is a summary of the patient's hospital course. A well-documented history can be found in the body of the chart. Briefly, this 86-year-old male has a history of hemorrhagic cystitis. He had some gross hematuria following a procedure last week when a bladder stone was removed. He continued to have some hematuria and then he developed urinary clot retention. Therefore, he was admitted to the hospital. His catheter was irrigated as needed and he was placed on continuous bladder irrigation, but continued to have problems, therefore, he was taken to surgery on 11/16/2016. Under anesthesia, he underwent cystoscopy, evacuation of bladder clots and fulguration of bleeding sites on the bladder mucosa. This controlled his bleeding. A Bautista catheter was placed at the conclusion of the procedure. He stayed overnight following the procedure. The following day on 11/17/2016, Bautista catheter was removed. He was voiding satisfactorily with a good stream and the urine was clear. Therefore, he was discharged home in improved condition. He was told to resume his home medications. He also had a prescription for Cipro antibiotics. He will follow up as needed. His condition was improved. TRINA HERRERA DO DR: CLARA/jamil JOB#: [id number] / [id number]
--- NOTE | 2016-11-19 03:20 | DS ---
DATE OF DISCHARGE: 11/17/2016 CHIEF COMPLAINT: Hematuria. HOSPITAL COURSE: The patient is an 86-year-old gentleman with recurrent hematuria secondary to radiation cystitis since radiation for prostate cancer in 1982. He presented with severe hematuria with clots to the Emergency Room. A 3-way Bautista was placed for bladder irrigation. His urologist, Dr. Briseno took him to cystoscopy with fulguration of the mucosa with good results, hematuria resolved. He was monitored for other 12 hours post-procedure and discharged the following day. Pain control was achieved with [place]. His only other medical issue was essentially thrombocytosis for which he is taking Hydrea with good results. PHYSICAL EXAMINATION: VITAL SIGNS: Blood pressure of 124/55, heart rate of 49, and respiratory rate at 18. GENERAL: This is an 86-year-old, well-nourished gentleman, alert and oriented, no acute distress. LUNGS: Clear. HEART: Regular rate and rhythm without any murmurs. ABDOMEN: Positive bowel sounds, soft, nontender. EXTREMITIES: Show no edema. DISCHARGE DATE: 11/17/2016. DISCHARGE DIAGNOSES: Hematuria, status post cystoscopy on 11/16/2016 with fulguration. DISCHARGE DISPOSITION: To home. DISCHARGE CONDITION: Improved. DISCHARGE MEDICATIONS: Please refer to MAR. DISCHARGE INSTRUCTIONS: The patient will follow up with his primary care physician in 1 to 2 weeks. GUIDO SPEARS MD DR: VIRGIL/nts JOB#: [id number] / [id number] ZINA Boykin
== END 2016-11-17 16:00 | disposition home or self-care (01) | DRG 670 ==
LOC: ER 14:23 → 5 NORTH 15:07 → OBSVTOIN 11-16 09:30
PROVIDERS: ADMIT Internal Medicine; ATTEND Internal Medicine
PROC: 0TCB8ZZ Extirpation of Matter from Bladder, Via Natural or Artificial Opening Endoscopic (ICD-10-PCS; 2016-11-16)
PROC: 0T5B8ZZ Destruction of Bladder, Via Natural or Artificial Opening Endoscopic (ICD-10-PCS; principal; 2016-11-16 07:30)
DX: N30.41 Irradiation cystitis with hematuria (principal); E78.00 Pure hypercholesterolemia, unspecified; I10 Essential (primary) hypertension; E66.3 Overweight; Z96.659 Presence of unspecified artificial knee joint; R33.9 Retention of urine, unspecified; D47.3 Essential (hemorrhagic) thrombocythemia; Z68.28 Body mass index [BMI] 28.0-28.9, adult; Z87.442 Personal history of urinary calculi; Z92.3 Personal history of irradiation; Z85.46 Personal history of malignant neoplasm of prostate; Z83.3 Family history of diabetes mellitus; Z88.0 Allergy status to penicillin
CPT/HCPCS: 36415; 80053; 85014; 85018; 85027; 85610; 85730; G0378; G0379; J0744; J1100; J2405; J2704; J3010; J7120; 99285-25

== ENCOUNTER → 2017-07-07 | Day surgery (SDC) | payer MEDICARE ==
[~2017-07-07] MED LIST changes: -ALEN70TA3 PO; -ASPI-482 PO; -ASPI81TA2 PO; -CETI10TA22 PO; -CHOL500015 PO; -CIPR500T94 PO; -CRESTOR5 MG PO; -ERGO500012 PO; -FOLI1TAB16 PO; -HYDR-971 PO; -HYDR500C16 PO; +HYDROmorphone 2 MG/ML VIAL IV; +LIDOCAINE 1% PF 2 ML VIAL. ID; +LIDOCAINE 2% 100 MG/5 ML SYRINGE.; -METR60GE TP; -METROGEL TOP; +MORPHINE SULFATE 2 MG/ML DISP.SYRIN. IV; -MULT-658 PO; -OMEP20CA5 PO; -OXYC-323 PO; -POTA10TA4 PO; +PROCHLORPERAZINE 10 MG/2 ML VIAL. IV; +PROPOFOL 20 ML IV; -TAMS0.4C2 PO; -WHEA1POW8 PO; -[UNRECOGNIZED DRUG - CODE] MC; -[UNRECOGNIZED DRUG - OTHER]; -[UNRECOGNIZED DRUG - OTHER]; +fentaNYL PF VIAL 100 MCG/2 ML VIAL IV; -juice plus
[2017-07-07] MEDS: IV RINGERS,LACTATED 1000ML 1,000 ML IV (09:39)
== END | disposition home or self-care (01) ==
LOC: ENDOS 09:12
DX: Z09 Encounter for follow-up examination after completed treatment for conditions other than malignant neoplasm (principal); Z86.010 Personal history of colon polyps; D12.4 Benign neoplasm of descending colon; K64.0 First degree hemorrhoids; K63.89 Other specified diseases of intestine; I10 Essential (primary) hypertension; K52.89 Other specified noninfective gastroenteritis and colitis; K21.9 Gastro-esophageal reflux disease without esophagitis; C44.90 Unspecified malignant neoplasm of skin, unspecified; E78.5 Hyperlipidemia, unspecified; G47.30 Sleep apnea, unspecified; I71.4 Abdominal aortic aneurysm, without rupture; I48.91 Unspecified atrial fibrillation; M19.90 Unspecified osteoarthritis, unspecified site; D64.9 Anemia, unspecified; Z88.0 Allergy status to penicillin; Z90.6 Acquired absence of other parts of urinary tract; Z98.52 Vasectomy status; Z87.891 Personal history of nicotine dependence
CPT/HCPCS: 45380; 88305; J2704

== ENCOUNTER → 2017-12-05 | Day surgery (SDC) | payer MEDICARE ==
[~2017-12-05] MED LIST changes: +BUPIVACAINE-EPI 0.25%-1:200000 50 ML VIAL.; +CETIRIZINE HCL 10 MG TABLET. PO; +CLINDAMYCIN 900MG PREMIX 50 ML IV; +CLINDAMYCIN HCL 150 MG CAPSULE. PO; +ESMOLOL 100 MG/10 ML VIAL. IV; +FAMOTIDINE 20 MG/2 ML VIAL; +FLUCONAZOLE 100 MG TABLET. PO; +FLUTICASONE 50MCG/NASAL SPRAY 16GM BOTTLE. NS; +HYDROcodone/APAP 5/325MG 1 TAB TABLET; -HYDROmorphone 2 MG/ML VIAL IV; -LIDOCAINE 2% 100 MG/5 ML SYRINGE.; +LIDOCAINE 2% PF Vial for OR 5 ML VIAL.; +ONDANSETRON PF 4 MG/2 ML VIAL.; +ONDANSETRON PF 4 MG/2 ML VIAL. IV; +POTASSIUM CITRATE 10 MEQ TABLET.ER PO; +REMIFENTANIL 1 MG VIAL. IV; +ROCURONIUM 50 MG/5 ML VIAL.; +SUCCINYLCHOLINE 200 MG/10 ML VIAL.; +TAMSULOSIN 0.4 MG CAP.ER.24H. PO; +fentaNYL PF VIAL 100 MCG/2 ML VIAL
[2017-12-05] MEDS: IV RINGERS,LACTATED 1000ML 1,000 ML IV (07:04)
[2017-12-05] MEDS: COCAINE 4% TOPICAL SOLUTION TP (07:57)
[2017-12-05] MEDS: LIDOCAINE 1%/EPI 1:100,000 30 ML VIAL. IJ (07:57)
[2017-12-05] MEDS: GELATIN SPONGE SIZE 12-7MM SPONGE. ×2 (08:10)
[2017-12-05] MEDS: fentaNYL PF VIAL 100 MCG/2 ML VIAL IV ×3 (08:52→09:09)
[2017-12-05] MEDS: HYDROcodone/APAP 5/325MG 1 TAB TABLET PO (09:31)
== END | disposition home or self-care (01) ==
LOC: SURG 06:10
DX: J01.80 Other acute sinusitis (principal); J32.8 Other chronic sinusitis; Z98.42 Cataract extraction status, left eye; Z98.41 Cataract extraction status, right eye; Z96.1 Presence of intraocular lens; E78.00 Pure hypercholesterolemia, unspecified; I48.91 Unspecified atrial fibrillation; Z86.010 Personal history of colon polyps; K21.9 Gastro-esophageal reflux disease without esophagitis; Z85.46 Personal history of malignant neoplasm of prostate; Z98.52 Vasectomy status; Z85.528 Personal history of other malignant neoplasm of kidney; Z98.890 Other specified postprocedural states; M19.90 Unspecified osteoarthritis, unspecified site; Z96.652 Presence of left artificial knee joint; D64.9 Anemia, unspecified; Z85.828 Personal history of other malignant neoplasm of skin; Z88.0 Allergy status to penicillin; Z90.49 Acquired absence of other specified parts of digestive tract; Z72.89 Other problems related to lifestyle; Z79.82 Long term (current) use of aspirin
CPT/HCPCS: 31253; 88305; 88311; A7015; J0330; J2001; J2405; J2704; J3010; J3490; J7030; S0028

== ENCOUNTER → 2018-10-11 | Outpatient (CLI) | payer MEDICARE ==
[2017-12-05 10:15] VITALS: BP 151/71
[~2018-10-11] MED LIST changes: +ALBU2.5V8 INH; +ALEN70TA3 PO; +ASPI-482 PO; +ASPI-630 PO; +BUDE10.2 IH; -BUPIVACAINE-EPI 0.25%-1:200000 50 ML VIAL.; +CETI10TA22 PO; -CETIRIZINE HCL 10 MG TABLET. PO; +CHOL500045 PO; +CIPR500T PO; +CIPR500T94 PO; -CLINDAMYCIN 900MG PREMIX 50 ML IV; -CLINDAMYCIN HCL 150 MG CAPSULE. PO; +CRESTOR5 MG PO; +ERGO500027 PO; -ESMOLOL 100 MG/10 ML VIAL. IV; -FAMOTIDINE 20 MG/2 ML VIAL; +FLUC100T4 PO; -FLUCONAZOLE 100 MG TABLET. PO; +FLUT16SP NS; -FLUTICASONE 50MCG/NASAL SPRAY 16GM BOTTLE. NS; +FOLI1TAB16 PO; +HYDR-2761 PO; +HYDR-3164 PO; +HYDR500C16 PO; -HYDROcodone/APAP 5/325MG 1 TAB TABLET; +LEVO750T5 PO; -LIDOCAINE 1% PF 2 ML VIAL. ID; -LIDOCAINE 2% PF Vial for OR 5 ML VIAL.; +LUPRON; +METR60GE TP; +METR70GE2 TOP; +METROGEL TOP; -MORPHINE SULFATE 2 MG/ML DISP.SYRIN. IV; +MULT-658 PO; +OMEP20CA10 PO; +OMEP20CA5 PO; -ONDANSETRON PF 4 MG/2 ML VIAL.; -ONDANSETRON PF 4 MG/2 ML VIAL. IV; +OXYC1TAB15 PO; +POTA10TA4 PO; -POTASSIUM CITRATE 10 MEQ TABLET.ER PO; -PROCHLORPERAZINE 10 MG/2 ML VIAL. IV; +PROM25TA10 PO; -PROPOFOL 20 ML IV; -REMIFENTANIL 1 MG VIAL. IV; -ROCURONIUM 50 MG/5 ML VIAL.; -SUCCINYLCHOLINE 200 MG/10 ML VIAL.; +TAMS0.4C2 PO; -TAMSULOSIN 0.4 MG CAP.ER.24H. PO; +WHEA1POW8 PO; +[UNRECOGNIZED DRUG - CODE] MC; +[UNRECOGNIZED DRUG - OTHER]; +[UNRECOGNIZED DRUG - OTHER]; -fentaNYL PF VIAL 100 MCG/2 ML VIAL; -fentaNYL PF VIAL 100 MCG/2 ML VIAL IV; +juice plus
--- NOTE | 2018-10-11 14:15 | RAD ---
Whole body bone scan Clinical indications: History of prostate cancer. COMPARISON: No previous bone scan available. CT study of the abdomen and pelvis dated August 25, 2017. At technique: After IV infusion of 25 mCi of technetium 99m MDP, delayed anterior and posterior planar images of whole body were performed. FINDINGS: Only one functioning kidney is seen on the right side with a percutaneous nephrostomy catheter in place. Poorly functioning left kidney is evident. Multiple foci of tracer activity is seen involving the posterior lateral aspects and anterior portions of the right rib cage which could be due to traumatic fractures. However, there is diffuse uptake involving the posterior lateral aspect of the right sixth rib. This pattern is more typical of osseous metastatic disease. There is focal activity involving the left ischial tuberosity corresponding to the osteoblastic metastatic lesion seen on CT study. There is degenerative activity seen involving both hip joints and the symphysis pubis. There is mild degenerative activity seen involving both SI joints which is symmetric. There is no abnormal activity seen involving the sacral alae or medial aspect of either iliac bone. 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 Photopenic area of the left knee is seen consistent with an arthroplasty. No abnormal activity is seen here. 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 Activity is seen involving the right rib cage which could be posttraumatic in nature. However, there is diffuse activity seen involving the posterior lateral aspect of the right sixth rib which given the diffuse uptake may be due to osseous metastatic disease. Only one functioning kidney is seen on the right side and a percutaneous nephrostomy catheter is in place. Electronically signed by: Jarret Dodd MD (10/11/2018 2:12 PM) [id number]
== END | disposition home or self-care (01) ==
LOC: NM 12:49
DX: C79.51 Secondary malignant neoplasm of bone (principal); Z85.46 Personal history of malignant neoplasm of prostate
CPT/HCPCS: 78306; A9503